=== PATIENT | male | born 1975 | race Caucasian/White ===

== ENCOUNTER 2020-06-07 11:05 | Emergency (ER) | payer OTHER ==
[2020-06-07] MEDS ORDERED: SODIUM CHLORIDE 0.9% 1,000 ML IV STA ×2 (12:36→13:39)
[2020-06-07] MEDS ORDERED: ONDANSETRON 4 MG/2 ML VIAL IVP STA (12:37)
--- NOTE | 2020-06-07 12:49 | ED Physician Documentation ---
History of Present Illness - Stated complaint Stated Complaint: NAUSEA/DIZZINESS - Chief complaint Chief Complaint: General - History obtained from History obtained from: Patient - History of Present Illness Pain level max: 0 Pain level now: 0 - Additonal information Additional information: Patient is a 45-year-old male who presents to the emergency department the chief complaint of "not feeling well". Has not been feeling well for the past few days, worsening today. Has had nausea and dry heaves. No fevers. Occasional chills. Minimal sore throat. Some rhinorrhea and congestion. Had his first Covid vaccination shot about 3 weeks ago. Does drink alcohol nightly. Has been trying to cut back on his alcohol consumption. Did have alcohol last night, but states it did not help his symptoms. No chest pain. No shortness of breath. Worse with eating and drinking, nothing makes it better Review of Systems Ten Systems: 10 systems reviewed and negative Constitutional: denies: Fever, Chills Ears: denies: Ear pain Nose: denies: Rhinorrhea / runny nose, Congestion Respiratory: denies: Cough : denies: Dysuria Skin: denies: Rash Musculoskeletal: denies: Neck pain, Back pain Neurologic: denies: Headache PD PAST MEDICAL HISTORY - Past Medical History Past Medical History: No - Past Surgical History Past Surgical History: Yes General: Appendectomy - Present Medications Home Medications: Ambulatory Orders Medication Instructions Recorded Confirmed Esomeprazole Magnesium [Nexium] 40 mg PO DAILY #30 cap 06/07/20 Famotidine [Pepcid] 20 mg PO BID #60 tablet 06/07/20 LORazepam [Ativan] 0.5 mg PO BID PRN #6 tablet 06/07/20 Ondansetron Odt [Zofran] 4 mg TL Q6H PRN #10 tablet 06/07/20 Sucralfate [Carafate] 1 gm PO ACHS #60 tablet 06/07/20 - Allergies Allergies/Adverse Reactions: Allergies Allergy/AdvReac Type Severity Reaction Status Date / Time No Known Drug Allergies Allergy Verified 06/07/20 11:08 - Social History Does the pt smoke?: No Smoking Status: Never smoker Does the pt drink ETOH?: Yes ETOH Use: Liquor Does the pt have substance abuse?: Yes Substance Use and Type: CBD oil / Products - Immunizations Immunizations are current?: Yes - POLST Patient has POLST: No PD ED PE NORMAL - Vitals Vital signs reviewed: Yes - General General: Alert and oriented X 3, No acute distress - HEENT HEENT: PERRL, EOMI, Ears normal, Moist mucous membranes, Pharynx benign - Neck Neck: Supple, no meningeal sign, No adenopathy - Cardiac Cardiac: RRR, Strong equal pulses - Respiratory Respiratory: No respiratory distress, Clear bilaterally - Abdomen Abdomen: Soft, Non tender, Non distended - Derm Derm: Warm and dry, No rash - Extremities Extremities: No edema, No calf tenderness / cord - Neuro Neuro: Alert and oriented X 3 - Psych Psych: Normal mood, Normal affect Results - Vitals Vitals: Vital Signs - 24 hr 06/07/20 06/07/20 06/07/20 11:08 11:37 14:51 Temperature 36.7 C Heart Rate 108 H 95 79 Respiratory 18 16 187 H Rate Blood Pressure 131/101 H 157/94 H 164/98 H O2 Saturation 96 96 100 06/07/20 06/07/20 15:30 16:26 Temperature 36.6 C Heart Rate 94 77 Respiratory 15 17 Rate Blood Pressure 171/106 H 158/102 H O2 Saturation 99 98 Oxygen O2 Source Room air - EKG (time done) 1314 Rate: Rate (enter#) (106) Rhythm: Sinus tachycardia [place]: Normal Intervals: Normal RI QRS: Normal Ischemia: ST elevation c/w repol - Labs Labs: Laboratory Tests 06/07/20 06/07/20 06/07/20 12:46 12:46 12:48 WBC 4.4 L RBC 5.55 Hgb 17.8 Hct 51.4 MCV 92.6 MCH 32.1 H MCHC 34.6 RDW 11.9 L Plt Count 208 MPV 8.4 Neut # (Auto) 2.8 Lymph # (Auto) 1.2 L Jewell # (Auto) 0.4 Eos # (Auto) 0.1 Baso # (Auto) 0.0 Absolute Nucleated RBC 0.00 Nucleated RBC % 0.0 Sodium 138 Potassium 4.2 Chloride 99 L Carbon Dioxide 28 Anion Gap 11.0 BUN 8 Creatinine 1.1 Estimated GFR (MDRD) 73 L Glucose 113 H Calcium 9.4 Phosphorus 3.5 Magnesium 1.8 Total Bilirubin 0.9 AST 85 H ALT 95 H Alkaline Phosphatase 75 Troponin I High Sens 3.2 Total Protein 7.0 Albumin 4.3 Globulin 2.7 Albumin/Globulin Ratio 1.6 Lipase 29 Urine Color Urine Clarity Urine pH Ur Specific [place] Urine Protein Urine Glucose (UA) Urine Ketones Urine Occult Blood Urine Nitrite Urine Bilirubin Urine Urobilinogen Ur Leukocyte Esterase Ur Microscopic Review Urine Culture Comments Nasal Adenovirus (PCR) Nasal B. parapertussis DNA (PCR) Nasal Coronavir 229E PCR Nasal Coronavir HKU1 PCR Nasal Coronavir NL63 PCR Nasal Coronavir OC43 PCR Nasal Enterovir/Rhinovir PCR Nasal Influenza B PCR Nasal Influenza A PCR Nasal Parainfluen 1 PCR Nasal Parainfluen 2 PCR Nasal Parainfluen 3 PCR Nasal Parainfluen 4 PCR Nasal RSV (PCR) Nasal B.pertussis DNA PCR Nasal C.pneumoniae (PCR) Richy Human Metapneumo PCR Nasal M.pneumoniae (PCR) Nasal SARS-CoV-2 (PCR) Ethyl Alcohol 227.9 06/07/20 06/07/20 13:13 14:10 WBC RBC Hgb Hct MCV MCH MCHC RDW Plt Count MPV Neut # (Auto) Lymph # (Auto) Jewell # (Auto) Eos # (Auto) Baso # (Auto) Absolute Nucleated RBC Nucleated RBC % Sodium Potassium Chloride Carbon Dioxide Anion Gap BUN Creatinine Estimated GFR (MDRD) Glucose Calcium Phosphorus Magnesium Total Bilirubin AST ALT Alkaline Phosphatase Troponin I High Sens Total Protein Albumin Globulin Albumin/Globulin Ratio Lipase Urine Color YELLOW Urine Clarity CLEAR Urine pH 8.5 H Ur Specific [place] 1.020 Urine Protein NEGATIVE Urine Glucose (UA) NEGATIVE Urine Ketones NEGATIVE Urine Occult Blood NEGATIVE Urine Nitrite NEGATIVE Urine Bilirubin NEGATIVE Urine Urobilinogen 0.2 (NORMAL) Ur Leukocyte Esterase NEGATIVE Ur Microscopic Review NOT INDICATED Urine Culture Comments NOT INDICATED Nasal Adenovirus (PCR) NOT DETECTED Nasal B. parapertussis DNA (PCR) NOT DETECTED Nasal Coronavir 229E PCR NOT DETECTED Nasal Coronavir HKU1 PCR NOT DETECTED Nasal Coronavir NL63 PCR NOT DETECTED Nasal Coronavir OC43 PCR NOT DETECTED Nasal Enterovir/Rhinovir PCR NOT DETECTED Nasal Influenza B PCR NOT DETECTED Nasal Influenza A PCR NOT DETECTED Nasal Parainfluen 1 PCR NOT DETECTED Nasal Parainfluen 2 PCR NOT DETECTED Nasal Parainfluen 3 PCR NOT DETECTED Nasal Parainfluen 4 PCR NOT DETECTED Nasal RSV (PCR) NOT DETECTED Nasal B.pertussis DNA PCR NOT DETECTED Nasal C.pneumoniae (PCR) NOT DETECTED Richy Human Metapneumo PCR NOT DETECTED Nasal M.pneumoniae (PCR) NOT DETECTED Nasal SARS-CoV-2 (PCR) NOT DETECTED Ethyl Alcohol PD MEDICAL DECISION MAKING - ED course Complexity details: reviewed results, re-evaluated patient, considered differential, d/w patient ED course: Patient is well-appearing, nontoxic. Afebrile. Likely has alcoholic gastritis. Tolerating p.o. without difficulty after nausea medications. Feels better after IV fluids. Will place on a PPI, H2 raquel and Carafate for home. Social work met with the patient and gave resources for alcoholism. Otherwise normal laboratory testing. Patient counseled regarding signs and symptoms for which I believe and urgent re-evaluation would be necessary. Patient with good understanding of and agreement to plan and is comfortable going home at this time This document was made in part using voice recognition software. While efforts are made to proofread this document, sound alike and grammatical errors may occur. Departure - Departure Disposition: Home, Self Care Clinical Impression: Gastritis Qualifiers: Gastritis type: alcoholic Chronicity: acute Gastritis bleeding: without bleeding Qualified Code(s): K29.20 - Alcoholic gastritis without bleeding Condition: Good Instructions: ED PUD Vs Gastritis Follow-Up: your,doctor in 1week [Other] Prescriptions: LORazepam [Ativan] 0.5 mg PO BID PRN #6 tablet PRN Reason: Anxiety Sucralfate [Carafate] 1 gm PO ACHS #60 tablet Esomeprazole Magnesium [Nexium] 40 mg PO DAILY #30 cap Famotidine [Pepcid] 20 mg PO BID #60 tablet Ondansetron Odt [Zofran] 4 mg TL Q6H PRN #10 tablet PRN Reason: Nausea / Vomiting Comments: Your testing does not show any acute abnormalities today. You are likely suffering from gastritis secondary to alcohol use. You should follow-up with your doctor for an endoscopy. Return if you worsen. Drink plenty of water at home. You can follow-up with the resources given to you by social work today for help with your alcohol use. Discharge Date/Time: 06/07/20 16:38
[2020-06-07 12:50] LABS: BASOPHILS % (AUTO) 0.7 %; EOSINOPHILS # (AUTO) 0.1 10^3/uL (0.0-0.7); EOSINOPHILS % (AUTO) 1.6 %; HCT - HEMATOCRIT 51.4 % (42.0-52.0); HGB - HEMOGLOBIN 17.8 g/dL (14.0-18.0); LYMPHOCYTES # (AUTO) 1.2 10^3/uL (1.5-3.5); LYMPHOCYTES % (AUTO) 26.5 %; MEAN CORPUSCULAR HEMOGLOBIN 32.1 pg (27.0-31.0); MEAN CORPUSCULAR HGB CONC 34.6 g/dL (32.0-36.0); MEAN CORPUSCULAR VOLUME 92.6 fL (80.0-94.0); MEAN PLATELET VOLUME 8.4 fL (7.4-11.4); MONOCYTES # (AUTO) 0.4 10^3/uL (0.0-1.0); MONOCYTES % (AUTO) 7.9 %; NEUTROPHILS # (AUTO) 2.8 10^3/uL (1.5-6.6); NEUTROPHILS % (AUTO) 62.8 %; PLT - PLATELET COUNT 208 10^3/uL (130-450); RED BLOOD COUNT 5.55 10^6/uL (4.70-6.10); RED CELL DISTRIBUTION WIDTH 11.9 % (12.0-15.0); WHITE BLOOD COUNT 4.4 x10^3/uL (4.8-10.8)
[2020-06-07 13:19] LABS: ALBUMIN 4.3 g/dL (3.2-5.5); ALBUMIN/GLOBULIN RATIO 1.6 (1.0-2.2); BILIRUBIN,TOTAL 0.9 mg/dL (0.2-1.0); CALCIUM 9.4 mg/dL (8.5-10.3); CREATININE 1.1 mg/dL (0.6-1.2); ETOH - ETHANOL 227.9 mg/dL; MAGNESIUM 1.8 mg/dL (1.7-2.8); PHOSPHORUS 3.5 mg/dL (2.5-4.6); POTASSIUM 4.2 mmol/L (3.5-5.0)
[2020-06-07 13:24] LABS: BILIRUBIN,URINE NEGATIVE (NEGATIVE); CLARITY,URINE CLEAR (CLEAR); GLUCOSE, URINE (UA) NEGATIVE (NEGATIVE); KETONES,URINE (UA) NEGATIVE (NEGATIVE); LEUKOCYTE ESTERASE, URINE NEGATIVE (NEGATIVE); NITRITE,URINE NEGATIVE (NEGATIVE); OCCULT BLOOD,URINE NEGATIVE (NEGATIVE); PH,URINE 8.5 PH (5.0-7.5); PROTEIN,URINE NEGATIVE (NEGATIVE); UROBILINOGEN,URINE 0.2 (NORMAL) E.U./dL (NORMAL)
[2020-06-07 15:21] LABS: B. PARAPERTUSSIS- RESP PCR PAN NOT DETECTED; B. PERTUSSIS- RESP PCR PANEL NOT DETECTED; C. PNEUMONIAE- RESP PCR PANEL NOT DETECTED; CORONAVIRUS 229E-RESP PCR NOT DETECTED; CORONAVIRUS HKU1-RESP PCR NOT DETECTED; CORONAVIRUS NL63-RESP PCR NOT DETECTED; CORONAVIRUS OC43-RESP PCR NOT DETECTED; HUMAN METAPNEUMOVIRUS NOT DETECTED; INFLUENZA A- RESP PCR PANEL NOT DETECTED; INFLUENZA B - RESP PCR PANEL NOT DETECTED; M. PNEUMONIAE- RESP PCR PANEL NOT DETECTED; PARAINFLUENZA VIRUS 1 NOT DETECTED; PARAINFLUENZA VIRUS 2 NOT DETECTED; PARAINFLUENZA VIRUS 3 NOT DETECTED; PARAINFLUENZA VIRUS 4 NOT DETECTED; RHINOVIRUS/ENTEROVIRUS NOT DETECTED; RSV- RESP PCR PANEL NOT DETECTED; SARS-CoV-2 -RESP PCR PANEL NOT DETECTED
[2020-06-07] MEDS ORDERED: MAG HYDROX/AL HYDROX/SIMETH 30 ML UDC PO STA (15:30)
[2020-06-07] MEDS ORDERED: PANTOPRAZOLE 40 MG VIAL IVP STA (15:30)
[2020-06-07] MEDS ORDERED: LORazepam 2 MG/ML VIAL IVP STA (15:30)
[2020-06-07] MEDS ORDERED: SUCRALFATE 1 GM/10 ML UDC PO STA (15:30)
[2020-06-07 16:28] VITALS: BP 158/102
--- OUTSIDE RECORDS SUMMARY | 2020-06-09 03:15 | EXTERNAL MEDICAL SUMMARY RPT | Continuity of Care Document ---
:1975 Demographics Phone Unavailable Preferred Language Unknown Marital Status Unknown Taoism Affiliation Unknown Race Unknown Ethnic Group Unknown Author Organization [facility] Address [address] [place] [address] Phone Social History date description facility [phone]
== END 2020-06-07 16:38 | disposition home or self-care (01) ==
LOC: ED 11:05
DX: K29.20 Alcoholic gastritis without bleeding (principal); F10.20 Alcohol dependence, uncomplicated; R00.0 Tachycardia, unspecified; Z20.822 Contact with and (suspected) exposure to COVID-19
CPT/HCPCS: 0202U; 36415; 80053; 80320; 81003; 83690; 83735; 84100; 84484; 85025; 93005; 96374; 96375; 99284; A9270; J2060; 81001; 87086

== ENCOUNTER 2022-01-09 08:02 | Emergency (ER) | payer MEDICAID, OTHER ==
[2022-01-09 08:15] VITALS: BP 146/99
--- NOTE | 2022-01-09 09:25 | XRAY Report ---
PROCEDURE: Knee 4 View LT INDICATIONS: Trauma TECHNIQUE: 4 views of the left knee(s) were acquired. COMPARISON: None. FINDINGS: Bones: No fractures or dislocations. No suspicious bony lesions. Soft tissues: Moderate joint effusion. No suspicious soft tissue calcifications. IMPRESSION: Moderate effusion. No visualized acute fracture or dislocation. However, occult injury c annot be excluded. Recommend short interval imaging follow-up in 7-10 days as clinically indicated fo r additional evaluation. Reviewed by: Flower Price MD on 01/09/2022 9:24 AM PST Approved by: Flower Price MD on 01/09/2022 9:24 AM PST Station ID: [id number]
--- NOTE | 2022-01-09 09:50 | ED Physician Documentation ---
History of Present Illness - Stated complaint Stated Complaint: LT KNEE SWELLING - Chief complaint Chief Complaint: Ext Problem - Additonal information Additional information: Patient 46-year-old Male presenting to the emergency department with left knee swelling ongoing x4 weeks. [place] [employer] [place] Has been able to ambulate since. Reports increased swelling to the anterior patella. States has been having difficulty with his regular workout routine, specifically things that involve the left knee such as lunges. Has not seen primary care or orthopedics. Review of Systems Ten Systems: 10 systems reviewed and negative Constitutional: denies: Fever Eyes: denies: Loss of vision Ears: denies: Loss of hearing Nose: denies: Rhinorrhea / runny nose Throat: denies: Dental pain / toothache Cardiac: denies: Chest pain / pressure Respiratory: denies: Dyspnea GI: denies: Abdominal Pain : denies: Dysuria PD PAST MEDICAL HISTORY - Past Surgical History Past Surgical History: Yes General: Appendectomy - Present Medications Home Medications: Ambulatory Orders Medication Instructions Recorded Confirmed Esomeprazole Magnesium [Nexium] 40 mg PO DAILY #30 cap 06/07/20 Famotidine [Pepcid] 20 mg PO BID #60 tablet 06/07/20 LORazepam [Ativan] 0.5 mg PO BID PRN #6 tablet 06/07/20 Ondansetron Odt [Zofran] 4 mg TL Q6H PRN #10 tablet 06/07/20 Sucralfate [Carafate] 1 gm PO ACHS #60 tablet 06/07/20 - Allergies Allergies/Adverse Reactions: Allergies Allergy/AdvReac Type Severity Reaction Status Date / Time No Known Drug Allergies Allergy Verified 01/09/22 08:15 - Social History Does the pt smoke?: No Smoking Status: Never smoker Does the pt drink ETOH?: Yes Does the pt have substance abuse?: Yes - Immunizations Immunizations are current?: Yes - POLST Patient has POLST: No PD ED PE NORMAL - General General: Alert and oriented X 3, No acute distress - HEENT HEENT: Atraumatic - Neck Neck: Supple, no meningeal sign - Respiratory Respiratory: No respiratory distress - Extremities Extremities: Other (There is soft tissue swelling to the anterior aspect of the patella consistent with a prepatellar bursitis. There is no joint instability. Patellar pulses palpable. There is no erythema or rubor that would be suggestive of infection.) Results - Vitals Vitals: Vital Signs - 24 hr 01/09/22 08:13 Temperature 36.0 C L Heart Rate 64 Respiratory 16 Rate Blood Pressure 146/99 H O2 Saturation 100 Oxygen O2 Source Room air PD MEDICAL DECISION MAKING - ED course Complexity details: reviewed results, d/w patient ED course: Patient 46-year-old male presenting with 4-week history anterior left knee swelling. Neurovascularly intact. X-rays negative for fracture. No joint instability. Overall has swelling to the prepatellar bursa. Provided Weston wrap for compression. Nothing in his physical presentation is consistent or concerning for septic arthritis or septicBursitis. Will prescribe nonsteroidal anti-inflammatory medications and refer to primary care/orthopedics as needed. Departure - Departure Disposition: , Self Care Clinical Impression: Prepatellar bursitis Instructions: ED Bursitis Follow-Up: Thomas Domingo MD [Provider Admit Priv/Credential] - Candy French ARNP [Provider Admit Priv/Credential] - Comments: Thank you for allowing us to care for you in the emergency department at [facility]. Today in the emergency department your evaluated for any possible life- threatening medical emergency. The x-rays taken today did not show any fracture. The swelling you are having to your anterior knee is consistent with what is known as a prepatellar bursitis. This is a relatively benign condition however will require follow-up with your primary care doctor and if persistent may require follow-up with an sales administration specialist. I have included contact information for both a local area [employer] With home you can establish yourself or primary care. Of also included contact information for Dr. Guzman addition, local area orthopod for your use as needed. In the interim I recommend Weston wraps and compression to your left knee. Knee sleeves can also be purchased at most drug stores and can provide adequate compression. Monitor your any carefully for any worsening pain, swelling, heat or redness that could indicate infection. You can use [id number] ibuprofen and acetaminophen for pain control. If it anytime you have any new or worsening symptoms please not hesitate to return.
== END 2022-01-09 10:15 | disposition home or self-care (01) ==
LOC: ED 08:02
DX: M70.42 Prepatellar bursitis, left knee (principal)
CPT/HCPCS: 99282; 99283